=== PATIENT | female | born 1985 | race Caucasian/White ===

== ENCOUNTER 2025-05-03 11:39 | Outpatient (CLI) | payer OTHER ==
[2025-05-03 12:17] LABS: #Basophils 0.1 thou/uL (0.0-0.2); #Eosinophils 0.1 thou/uL (0.0-0.7); #Lymphocytes 2.3 thou/uL (1.20-3.40); #Monocytes 0.4 thou/uL (0.11-0.59); #Neutrophils 5.8 thou/uL (1.40-6.50); %Basophils 1.3 % (0.0-1.0); %Eosinophils 1.6 % (0.0-10.0); %Lymphocytes 26.1 % (21.0-51.0); %Monocytes 4.1 % (0.0-10.0); %Neutrophils 66.9 % (42.0-75.0); Hematocrit 43.6 % (36.0-47.0); Hemoglobin 13.7 g/dL (12.0-16.0); Mean Corpuscular Hemoglobin 27.4 pg (27.0-31.0); Mean Corpuscular Volume 87.5 fl (78.0-98.0); Platelet Count 333 10x3/uL (130-400); Red Blood Cell (RBC) Count 4.99 mill/uL (4.20-5.40); White Blood Cell (WBC) Count 8.6 10x3/uL (4.8-10.8)
== END 2025-05-03 11:40 | disposition home or self-care (01) ==
LOC: MADLAB 11:39
DX: H47.012 Ischemic optic neuropathy, left eye (principal)
CPT/HCPCS: 36415; 85025; 86140